=== PATIENT | male | born 1995 | race African-American/Black ===

== ENCOUNTER 2023-04-03 14:28 | Emergency (ER) | payer MEDICAID ==
[~2023-04-03] VITALS: Ht 165.1 cm; Wt 56.7 kg
[2023-04-03 15:10] VITALS: BP 115/62
--- NOTE | 2023-04-03 15:16 | NUR ---
PT. AMB. TO BED 3 WITH NO DISTRESS
--- NOTE | 2023-04-03 15:35 | NUR ---
MD SHETTY AT BEDSIDE FOR EVALUATION
--- NOTE | 2023-04-03 16:16 | NUR ---
Yves romero in ED - 04/03/23 at 1646 by [id number] ASSUMED CARE PT HERE FOR EVAL FOR DENTAL CARRY BUT HE ALSO TOLD ER DOCTOR HE WANS TO HURT HIMSELF , PT JUST MOV
--- NOTE | 2023-04-03 16:23 | NUR ---
PT MOVED TO BED 5
--- NOTE | 2023-04-03 16:25 | NUR ---
MOVED TO BED 5 FOR SAFETY, NOW PATIENT DENIES SI AND REFUSES IV START, CHANGING TO A GOWN "I AM FINE I ONLY NEED ANTIBIOTICS, AND I NEVER WOULD HURT MYSELF"
--- NOTE | 2023-04-03 16:33 | NUR ---
PT HERE FOR EVALUATION FOR DENTAL CARRY ,BUT HE ALSO ROSALIA ER DOCTOR THAT HE WANTS TO HRURT HIMSELF , PT STS JUST MOVED HERE FR [facility] AND HE HAS NO SUPPORT SYSTEM , PT IS HOMELESS, DENIES SUICIDAL PLAN, NO VISUAL OR AUDIORY HALLUCINATION
--- NOTE | 2023-04-03 17:09 | NUR ---
Patient discharged with v/s stable. Written and verbal after care instructions given and explained. Patient verbalized understanding. Ambulatory with to home. All questions addressed prior to discharge. Advised to follow up with PMD.
== END 2023-04-03 17:24 | disposition home or self-care (01) ==
LOC: MED 14:28
DX: K08.89 Other specified disorders of teeth and supporting structures (principal); R53.1 Weakness; F32.A Depression, unspecified; Z79.899 Other long term (current) drug therapy
CPT/HCPCS: 99283